=== PATIENT | male | born 1955 | race African-American/Black ===

== ENCOUNTER 2018-09-17 13:20 | Emergency (ER) | payer MEDICAID ==
[~2018-09-17] VITALS: Ht 188 cm; Wt 138.3 kg
[2018-09-17 16:07] LABS: Basophils # (auto) 0 uL; Eosinophils # (auto) 0.3 uL; Hemoglobin 14.5 g/dL (13.5-17.5); Mean Corpuscular Hemoglobin 26.3 pg (28.0-32.0); Mean Corpuscular Hgb Conc. 32.5 g/dL (32.0-36.0); Monocytes # (auto) 0.9 uL; Nucleated Red Blood Cells % 0.1 %
[2018-09-17 16:08] LABS: Basophils % (auto) 0.4 % (0.0-2.0); Eosinophils % (auto) 2.6 % (0.0-7.0); Hematocrit 44.7 % (41.0-53.0); Lymphocytes # (auto) 2.5 uL; Lymphocytes % (auto) 21.8 % (10.0-50.0); Mean Corpuscular Volume 81.1 fL (80.0-100.0); Monocytes % (auto) 8.2 % (0.0-12.0); Neutrophils # (auto) 7.7 uL; Platelet Count (auto) 202 10^3/uL (140-450); Red Blood Cells 5.51 10^6/uL (4.5-5.90); White Blood Cell 11.5 10^3/uL (4.4-10.8)
[2018-09-17 16:13] LABS: Alanine Aminotransferase 52 U/L (16-61); Alkaline Phosphatase 93 U/L (45-117); Aspartate Aminotransferase 36 U/L (15-37); Bilirubin, Total 0.4 mg/dL (0.2-1.0); GFR African American 86 mL/min; GFR Non-African American 71 mL/min; Total Protein 7.9 g/dL (6.4-8.2)
[2018-09-17 16:52] LABS: INR 0.96 (0.9-1.15); Partial Thromboplastin Time 27.1 sec (23.78-33.04); Prothrombin Time 10.3 sec (9.27-12.13)
[2018-09-17 17:56] LABS: Anion Gap 9 (5-15); BUN/Creatinine Ratio 9.9; Blood Urea Nitrogen 11 mg/dL (7-18); Calcium 8.8 mg/dL (8.5-10.1); Carbon Dioxide 25 mmol/L (21-32); Chloride 106 mmol/L (98-107); Glucose 142 mg/dL (74-106); Sodium 140 mmol/L (136-145)
[2018-09-17 17:57] LABS: Albumin 3.7 g/dL (3.4-5.0)
[2018-09-17] MEDS ORDERED: ONDANSETRON HCL 4 MG/2 ML VIAL IV ONE (19:30)
[2018-09-17] MEDS ORDERED: MORPHINE SULF INJ 2 MG/ML SYRINGE 1ML IV ONE (19:30)
[2018-09-17 20:30] VITALS: BP 143/78
== END 2018-09-17 21:01 | disposition home or self-care (01) ==
LOC: ER 13:20
DX: R51 Headache (principal); R55 Syncope and collapse; M54.2 Cervicalgia; E11.9 Type 2 diabetes mellitus without complications; E78.5 Hyperlipidemia, unspecified; I10 Essential (primary) hypertension; R42 Dizziness and giddiness
CPT/HCPCS: 36415; 70450; 71046; 72125; 80053; 84484; 85025; 85610; 85730; 93005; 96374; 96375; 99284; J2270; J2405

== ENCOUNTER 2020-01-03 17:10 | Emergency (ER) | payer MEDICARE, MEDICAID ==
[~2020-01-03] VITALS: Ht 180.3 cm; Wt 137.5 kg
[2020-01-03 17:47] VITALS: BP 149/79
== END 2020-01-03 20:21 | disposition home or self-care (01) ==
LOC: EDBD 17:10 → ER 17:10
DX: J30.2 Other seasonal allergic rhinitis (principal); M54.5 Low back pain; E66.9 Obesity, unspecified; F41.9 Anxiety disorder, unspecified; E11.9 Type 2 diabetes mellitus without complications; I10 Essential (primary) hypertension; E78.5 Hyperlipidemia, unspecified